=== PATIENT | male | born 1960 | race Caucasian/White ===

== ENCOUNTER 2017-11-15 14:55 | Emergency (ER) | payer SELFPAY ==
[2017-11-15 15:42] LABS: Basophils % (Auto) 0.4 % (0.0-1.8); Eosinophils # (Auto) 0.2 K/mm3 (0.0-0.4); Eosinophils % (Auto) 2.1 % (0.0-4.3); Hematocrit 44.8 % (35.5-45.6); Hemoglobin 15.2 gm/dl (11.8-15.2); Lymphocytes # (Auto) 2.3 K/mm3 (1.2-5.4); Lymphocytes % (Auto) 23.9 % (13.4-35.0); Mean Corpuscular HGB Conc 34 % (32-34); Mean Corpuscular Hemoglobin 28 pg (28-32); Mean Corpuscular Volume 84 fl (84-94); Monocytes # (Auto) 1.1 K/mm3 (0.0-0.8); Monocytes % (Auto) 11.6 % (0.0-7.3); Red Blood Count 5.36 M/mm3 (3.65-5.03); Red Cell Distribution Width 14.5 % (13.2-15.2)
[2017-11-15 15:44] LABS: Platelet Count 194 K/mm3 (140-440)
[2017-11-15 15:55] LABS: BUN/Creatinine Ratio 15; Blood Urea Nitrogen 12 mg/dL (9-20); Calcium 8.9 mg/dL (8.4-10.2); Hemolysis Index 8
--- NOTE | 2017-11-16 17:17 | Emergency Department Report ---
ED Chest Pain HPI - General Chief Complaint: Chest Pain Stated Complaint: HTN, C/P, HOLLIS Time Seen by Provider: 11/16/17 16:30 Source: patient Mode of arrival: Ambulatory Limitations: No Limitations - History of Present Illness Initial Comments: Patient complains of 4 months of pain of the abdomen and chest border bilaterally. It is not associated with any nausea, vomiting ,coughing ,fevers or chills. She also complains of a dry mouth and also shaking at night. Patient works at a [employer] business where he stands up all day. He also complains of a frontal headache. MD Complaint: chest pain, other (abdominal pain) -: month(s) (4) Severity scale (0 -10): 0 - Related Data Home Medications Medication Instructions Recorded Confirmed Last Taken No Known Home Medications [No 11/16/17 11/16/17 Unknown Reported Home Medications] Allergies Allergy/AdvReac Type Severity Reaction Status Date / Time No Known Allergies Allergy Unverified 08/06/14 13:49 Heart Score - HEART Score EKG: Normal Age: 45-65 Risk factors: 1-2 risk factors Troponin: < normal limit ED Review of Systems ROS: Stated complaint: HTN, C/P, HOLLIS Other details as noted in HPI ED Past Medical Hx - Past Medical History Previous Medical History?: Yes Hx Hypertension: Yes - Surgical History Past Surgical History?: No - Social History Smoking Status: Never Smoker Substance Use Type: None - Medications Home Medications: Home Medications Medication Instructions Recorded Confirmed Last Taken Type No Known Home Medications [No 11/16/17 11/16/17 Unknown History Reported Home Medications] ED Physical Exam - General Limitations: No Limitations General appearance: alert, in no apparent distress - Head Head exam: Present: atraumatic, normocephalic - Eye Eye exam: Present: normal appearance, EOMI - ENT ENT exam: Present: mucous membranes moist - Neck Neck exam: Present: normal inspection, full ROM - Respiratory Respiratory exam: Present: normal lung sounds bilaterally. Absent: respiratory distress, wheezes, rales - Cardiovascular Cardiovascular Exam: Present: regular rate, normal rhythm. Absent: systolic murmur, diastolic murmur, rubs, gallop - GI/Abdominal GI/Abdominal exam: Present: soft, tenderness (left upper quadrant bordering chest wall, left flank, lower left chest), normal bowel sounds - Rectal Rectal exam: Present: deferred - Extremities Exam Extremities exam: Present: normal inspection, full ROM - Back Exam Back exam: Present: normal inspection, full ROM - Neurological Exam Neurological exam: Present: alert, oriented X3 - Psychiatric Psychiatric exam: Present: normal affect, normal mood - Skin Skin exam: Present: warm, dry, intact, normal color. Absent: rash ED Course Vital Signs 11/15/17 11/16/17 11/16/17 15:09 03:56 07:46 Temperature 97.6 F 97.9 F 98 F Pulse Rate 87 85 75 Respiratory 18 20 18 Rate Blood Pressure 154/94 146/103 165/117 Blood Pressure [Left] O2 Sat by Pulse 100 96 100 Oximetry 11/16/17 11/16/17 11/16/17 11:53 16:29 16:45 Temperature 97.7 F Pulse Rate 84 97 H 86 Respiratory 18 20 18 Rate Blood Pressure 161/107 132/89 Blood Pressure 142/94 [Left] O2 Sat by Pulse 97 Oximetry 11/16/17 11/16/17 11/16/17 19:00 19:15 19:30 Temperature Pulse Rate 97 H 107 H 115 H Respiratory 22 20 22 Rate Blood Pressure 142/95 135/86 144/103 Blood Pressure [Left] O2 Sat by Pulse 98 97 96 Oximetry 11/16/17 11/16/17 11/16/17 19:36 19:45 20:00 Temperature Pulse Rate 113 H 113 H Respiratory 20 22 21 Rate Blood Pressure 138/95 138/95 Blood Pressure [Left] O2 Sat by Pulse 100 97 Oximetry 11/16/17 21:05 Temperature Pulse Rate 98 H Respiratory 10 L Rate Blood Pressure 138/95 Blood Pressure [Left] O2 Sat by Pulse 99 Oximetry DORETHA score - Doretha Score Age > 65: (0) No Aspirin use within the Past 7 Days: (0) No 3 or more CAD Risk Factors: (0) No 2 or more Angina events in past 24 hrs: (0) No Known CAD with more than 50% Stenosis: (0) No Elevated Cardiac Markers: (0) No ST Deviation Greater than 0.5mm: (0) No DORETHA Score: 0 ED Medical Decision Making - Lab Data Result diagrams: 11/15/17 15:00 11/15/17 15:00 - EKG Data -: EKG Interpreted by [facility] EKG shows normal: sinus rhythm, axis, intervals, QRS complexes, ST-T waves ( heart: 76; EKG #2 heart rate of 70, sinus rhythm, Q in V3,) - Radiology Data Radiology results: report reviewed (acute abdominal series: Moderate fecal retention) Critical care attestation.: If time is entered above; I have spent that time in minutes in the direct care of this critically ill patient, excluding procedure time. ED Disposition Clinical Impression: Acute chest pain, Acute abdominal pain Constipation Qualifiers: Constipation type: unspecified constipation type Qualified Code(s): K59.00 - Constipation, unspecified Disposition: DC-09 OP ADMIT IP TO THIS HOSP Is pt being admited?: Yes Does the pt Need Aspirin: No Condition: Stable Instructions: Chest Pain (ED) Referrals: PRIMARY CARE, [Primary Care Provider] - 3-5 Days Forms: AMA Form Time of Disposition: 23:08
[2017-11-16] MEDS ORDERED: NACL 0.9% 1000 ML 1,000 ML IV ONE (17:21)
--- NOTE | 2017-11-16 18:02 | XRay Report ---
FINAL REPORT EXAM: XR ABD SERIES W CXR 1V HISTORY: abd and chest pain TECHNIQUE: Frontal chest and two views of the abdomen Comparison: None FINDINGS: Normal heart size. Scattered granulomata bilaterally. No definite focal infiltrates. Scattered stool throughout the colon. Large stool ball in the rectum. No definite suspicious calcifications. No free air. No organomegaly. Imaged axial skeleton is unremarkable. 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 Moderate fecal retention. No definite evidence for obstruction or perforation.
[2017-11-16 18:40] LABS: Alanine Aminotransferase 31 units/L (7-56); Albumin 4.1 g/dL (3.9-5)
[2017-11-16 18:42] LABS: Bilirubin,Direct < 0.2 mg/dL (0-0.2)
[2017-11-16] MEDS ORDERED: TORADOL IV ONE (21:00)
[2017-11-16] MEDS ORDERED: NACL 0.9% 1000 ML 1,000 ML ONE (21:05)
[2017-11-16 21:14] VITALS: BP 138/95
== END 2017-11-16 23:57 | disposition left against medical advice (07) ==
LOC: ED 14:55
DX: R07.9 Chest pain, unspecified (principal); K59.00 Constipation, unspecified; I10 Essential (primary) hypertension
CPT/HCPCS: 36415; 74022; 80048; 80074; 83690; 84484; 85025; 85379; 93005; 93010; 96360; 99284; G0480; J7030; 80320

== ENCOUNTER 2019-06-18 16:51 | Emergency (ER) | payer OTHER ==
--- NOTE | 2019-06-18 17:01 | Event Note ---
ED Screening Note ED Screening Note: pt states he has dizziness and headache for a couple of days +room spinning states his blood pressure has been running higher carvedilol 12.5 BID has not had his medication in a month does not have a primary care doctor no numbness or unilateral weakness This initial assessment/diagnostic orders/clinical plan/treatment(s) is/are subject to change based on patients health status, clinical progression and re- assessment by fellow clinical providers in the ED. Further treatment and workup at subsequent clinical providers discretion. Patient/guardian urged not to elope from the ED as their condition may be serious if not clinically assessed and managed. Initial orders include: labs, CT head, EKG
[2019-06-18] MEDS ORDERED: NACL 0.9% 1000 ML 1,000 ML IV ONE (19:11)
[2019-06-18] MEDS ORDERED: ANTIVERT PO ONE (19:11)
--- NOTE | 2019-06-18 19:33 | Cat Scan Report ---
CT head without contrast INDICATION : dizziness, HOLLIS. TECHNIQUE: Axial imaging performed from the skull apex through the skull base without the use of con trast. All CT scans at this location are performed using CT dose reduction for ALARA by means of aut omated exposure control. COMPARISON: None FINDINGS: Parenchyma: No acute intracranial hemorrhage or parenchymal abnormality. 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 Ventricles: Ventricles are normal in size and appear symmetric. Soft tissues: Soft tissues including the orbits appear normal. Bones: No acute osseous abnormality. Sinuses: Sinuses and mastoid air cells are clear. IMPRESSION: No acute abnormality. Signer Name: Miko Goel MD Signed: 06/18/2019 7:28 PM Workstation Name: [id number]
[2019-06-18 19:41] LABS: Basophils # (Auto) 0.1 K/mm3 (0.0-0.1); Eosinophils # (Auto) 0.5 K/mm3 (0.0-0.4); Eosinophils % (Auto) 4.3 % (0.0-4.3); Hemoglobin 15.9 gm/dl (11.8-15.2); Lymphocytes # (Auto) 3.3 K/mm3 (1.2-5.4); Lymphocytes % (Auto) 30.3 % (13.4-35.0); Mean Corpuscular HGB Conc 35 % (32-34); Mean Corpuscular Volume 84 fl (84-94); Monocytes # (Auto) 1.3 K/mm3 (0.0-0.8); Monocytes % (Auto) 11.9 % (0.0-7.3); Red Blood Count 5.46 M/mm3 (3.65-5.03); Red Cell Distribution Width 14.2 % (13.2-15.2)
--- NOTE | 2019-06-18 19:48 | Emergency Department Report ---
ED Headache HPI - General Chief Complaint: High BP Stated Complaint: HEADACHE/DIZZINESS Time Seen by Provider: 06/18/19 16:58 - History of Present Illness Initial Comments: This is a 59-year-old male nontoxic, well nourished in appearance, no acute signs of distress presents to the ED with c/o of headache and dizziness. Patient also stated is in need for his blood pressure medication carvedilol 12.5 mg twice daily refill. Patient describes headache as diffuse with level of 3 out of 10. Patient denies thunderclap headache. Patient denies any radiation of pain. Patient denies any head trauma. Patient denies any visual changes. Patient denies worse headache. Patient denies any numbness, tingling, fever, chills, nausea, vomiting, chest pain, shortness of breath, stiff neck. Patient denies facial drooping or one sided weakness. Patient denies any radiation of pain. Patient denies any allergies. Quality: mild, achy Head Injury Location: other (diffuse) Recent Head Trauma: no recent headache/trauma Associated Symptoms: denies symptoms. denies: confusion, fatigue, facial pain, fever/chills, flushing, loss of consciousness, nausea/vomiting, nasal congestion, nasal drainage, numbness in legs/feet, rash, seizures, sinus infection, stiff neck, vision changes, weakness Allergies/Adverse Reactions: Allergies No Known Allergies Allergy (Verified 06/18/19 16:52) Home Medications: Ambulatory Orders Carvedilol [Coreg] 12.5 mg PO BID #60 tablet 06/18/19 Ibuprofen [Motrin] 600 mg PO Q8H PRN #20 tablet 06/18/19 Meclizine [Antivert] 12.5 mg PO BID PRN #6 tablet 06/18/19 ED Review of Systems ROS: Stated complaint: HEADACHE/DIZZINESS Other details as noted in HPI Constitutional: denies: chills, fever Eyes: denies: eye pain, eye discharge, vision change ENT: denies: ear pain, throat pain Respiratory: denies: cough, shortness of breath, wheezing Cardiovascular: denies: chest pain, palpitations Endocrine: no symptoms reported Gastrointestinal: denies: abdominal pain, nausea, diarrhea Genitourinary: denies: urgency, dysuria Musculoskeletal: denies: back pain, joint swelling, arthralgia Skin: denies: rash, lesions Neurological: headache, vertigo. denies: weakness, paresthesias Psychiatric: denies: anxiety, depression Hematological/Lymphatic: denies: easy bleeding, easy bruising ED Past Medical Hx - Past Medical History Hx Hypertension: Yes - Social History Smoking Status: Never Smoker Substance Use Type: None - Medications Home Medications: Home Medications Medication Instructions Recorded Confirmed Last Taken Type Carvedilol [Coreg] 12.5 mg PO BID #60 tablet 06/18/19 Unknown Rx Ibuprofen [Motrin] 600 mg PO Q8H PRN #20 tablet 06/18/19 Unknown Rx Meclizine [Antivert] 12.5 mg PO BID PRN #6 tablet 06/18/19 Unknown Rx ED Physical Exam - General Limitations: No Limitations General appearance: alert, in no apparent distress - Head Head exam: Present: atraumatic, normocephalic - Eye Eye exam: Present: normal appearance - Neck Neck exam: Present: normal inspection, full ROM. Absent: tenderness, meningismus, lymphadenopathy - Respiratory Respiratory exam: Present: normal lung sounds bilaterally. Absent: respiratory distress, wheezes, rales, rhonchi, stridor, chest wall tenderness, accessory muscle use, decreased breath sounds, prolonged expiratory - Cardiovascular Cardiovascular Exam: Present: regular rate, normal rhythm, normal heart sounds. Absent: bradycardia, tachycardia, irregular rhythm, systolic murmur, diastolic murmur, rubs, gallop - Extremities Exam Extremities exam: Present: normal inspection, full ROM - Back Exam Back exam: Present: normal inspection, full ROM. Absent: tenderness, CVA ten derness (R), CVA tenderness (L), muscle spasm, paraspinal tenderness, vertebral tenderness, rash noted - Neurological Exam Neurological exam: Present: alert, oriented X3, normal gait - Expanded Neurological Exam Expanded Patient oriented to: Present: person, place, time Cranial nerves: Facial Sensation: Normal Cerebellar function: Finger to Nose: Normal Upper motor neuron: Pronator Drift: Normal, Sensory Extinction: Normal Motor strength exam: RUE: 5, LUE: 5, RLE: 5, LLE: 5 Best Eye Response (Tammie): (4) open spontaneously Best Motor Response ([place]): (6) obeys commands Best Verbal Response (Tammie): (5) oriented Tammie Total: 15 - Psychiatric Psychiatric exam: Present: normal affect, normal mood - Skin Skin exam: Present: warm, dry, intact, normal color. Absent: rash ED Course Vital Signs 06/18/19 16:59 Temperature 98.3 F Pulse Rate 67 Respiratory 18 Rate Blood Pressure 143/91 O2 Sat by Pulse 98 Oximetry - Reevaluation(s) Reevaluation #1: 06/18/19 19:46 Patient is speaking in full sentences with no signs of distress noted. ED Medical Decision Making - Lab Data Result diagrams: 06/18/19 19:15 06/18/19 19:15 - Medical Decision Making This is a 59-year-old male that presents with headache, dizziness and medication refill. Patient is stable and was examined by me. Patient is neurologically stable. There is no stiff neck or neck pain. Vital signs are stable. Patient is afebrile. EKG normal sinus rhythm with no ST abnormalities. CT of head dictated by radiologist unremarkable and patient is notified of the results with no questions noted by the patient. Labs are unremarkable. Patient received Antivert and 1 L of normal saline which the patient stated that headache has subsided and resolved. Patient discharged with Motrin and Antivert. Patient was referred to Follow-up with a primary care/neurologist doctor in 3-5 days or if symptoms worsen and continue return to emergency room as soon as possible. At time of discharge, the patient does not seem toxic or ill in appearance. No acute signs of distress noted. Patient agrees to discharge treatment plan of care. No further questions noted by the patient. Critical care attestation.: If time is entered above; I have spent that time in minutes in the direct care of this critically ill patient, excluding procedure time. ED Disposition Clinical Impression: Medication refill, Dizziness Headache Qualifiers: Headache type: unspecified Headache chronicity pattern: unspecified pattern Intractability: not intractable Qualified Code(s): R51 - Headache Disposition: DC-01 TO HOME OR SELFCARE Is pt being admited?: No Does the pt Need Aspirin: No Condition: Stable Instructions: Acute Headache (ED), Dizziness (ED) Additional Instructions: Follow-up with a primary care/neurologist doctor in 3-5 days or if symptoms worsen and continue return to emergency room as soon as possible. Prescriptions: Meclizine [Antivert] 12.5 mg PO BID PRN #6 tablet PRN Reason: Vertigo Carvedilol [Coreg] 12.5 mg PO BID #60 tablet Ibuprofen [Motrin] 600 mg PO Q8H PRN #20 tablet PRN Reason: Pain Referrals: QUOC HERNANDEZ MD [Primary Care Provider] - 3-5 Days PRIMARY CAREMD [Referring] - 3-5 Days PADDY ELENA MD [Staff Physician] - 3-5 Days [facility] [place] [Outside] - 3-5 Days [facility] [Outside] - 3-5 Days Forms: Work/School Release Form(ED)
[2019-06-18 20:04] LABS: BUN/Creatinine Ratio 13; Blood Urea Nitrogen 12 mg/dL (9-20); Calcium 8.8 mg/dL (8.4-10.2); Hemolysis Index 43
[2019-06-18 20:44] VITALS: BP 158/109
[2019-06-18 23:31] LABS: Platelet Count 167 K/mm3 (140-440)
== END 2019-06-18 20:44 | disposition home or self-care (01) ==
LOC: ED 16:51
DX: R51 Headache (principal); R42 Dizziness and giddiness; I10 Essential (primary) hypertension; Z79.899 Other long term (current) drug therapy; Z76.0 Encounter for issue of repeat prescription
CPT/HCPCS: 36415; 70450; 80048; 83735; 84100; 84484; 85025; 93005; 93010; 96360; 99284; J7030